=== PATIENT | female | born 1970 | race Caucasian/White ===

== ENCOUNTER 2017-02-09 23:10 | Emergency (ER) | payer OTHER ==
[2017-02-09] MEDS ORDERED: NS 1,000 ML IV ONE ×2 (23:20→23:56)
[2017-02-09 23:25] VITALS: RESP 16
[2017-02-09 23:37] LABS: % IMMATURE GRANULYOCYTES 0.2 % (0.0-1.1); ABSOLUTE IMMATURE GRANULOCYTES 0.01 10^3/uL (0.00-0.10); ADD DIFF? NO; ADD MORPH? NO; ADD SCAN? NO; ATYPICAL LYMPHOCYTE FLAG 20 (0-99); FRAGMENT RBC FLAG 0 (0-99); HEMATOCRIT 42.3 % (38.0-47.0); HEMOGLOBIN 14.6 g/dL (12.6-16.3); LEFT SHIFT FLG 0 (0-99); LIPEMIA HEMOLYSIS FLAG 90 (0-99); MEAN CELL HEMOGLOBIN CONCENTR. 34.5 g/dL (32.4-36.7); MEAN CELL VOLUME 92.8 fL (81.5-99.8); MEAN PLATELET VOLUME 10.6 fL (8.7-11.7); PLATELET CLUMPS FLAG 30 (0-99); PLATELET COUNT 174 10^3/uL (150-400); RED BLOOD CELL COUNT 4.56 10^6/uL (4.18-5.33); RED CELL DISTRIBUTION WIDTH 12.1 % (11.5-15.2)
[2017-02-09 23:47] LABS: ANION GAP 16 mEq/L (8-16); CALCIUM 9.4 mg/dL (8.5-10.4); CARBON DIOXIDE 22 mEq/l (22-31); CHLORIDE 104 mEq/L (97-110); CREATININE 0.8 mg/dL (0.6-1.0); GLOMERULAR FILTRATION RATE > 60; GLUCOSE 114 mg/dL (70-100); POTASSIUM 3.9 mEq/L (3.5-5.2); SODIUM 142 mEq/L (134-144)
[2017-02-09] MEDS ORDERED: ONDANSETRON 4 MG/2 ML VIAL IVP ONE (23:48)
[2017-02-09] MEDS ORDERED: KETOROLAC 30 MG/1 ML SDV IVP ONE (23:48)
--- NOTE | 2017-02-09 23:55 | EDPHY ---
H & P Stated Complaint: nausea/diarrhea since last night with fever. Time Seen by Provider: 02/09/17 23:13 HPI/ROS: This patient complains of fevers, coryza, dry cough nausea and diarrhea. She explains that 5 days prior to arrival she noticed coryza and a mild sore throat. Her symptoms increased with addition of fevers over the past 48 hr up to 102 at home associated with chills and myalgias. She reports 2 days of a dry cough in addition. She developed the nausea with a dry heave over the past 24 hr and at tonight at 7:00 p.m. developed associated loose watery diarrhea- few episodes prior to arrival. Finally, the patient complains of a bifrontal headache peak intensity 8/10 diminish to 4/10 intensity after receiving IM Toradol at home at 1:30 a.m. by a home health care service called [facility]. She also received Zofran and took a 4 mg dose at 8:00 p.m. with partial relief of nausea which is still moderate. The [facility] service was able to do a nasal swab test for influenza a and B which was negative. ROS: Fevers and chills as per HPI. Fever earlier today was 101.9. Last Tylenol dose was at 4:00 p.m. Toradol dose at 1:30 p.m. no other antiemetics since then. Patient also her complains of fatigue. No other constitutional symptoms HEENT: Coryza. Mild sore throat that she attributes to coughing. No ear pain. Neuro: Frontal headache is similar to prior headaches comma achy in nature currently 4/10 with partial relief from [id number] analgesics. She has no numbness tingling or focal weakness. Psychiatric: Patient is currently grieving the of her father who this morning. He had an HI 2 weeks ago was on a ventilator. She flew back from [place] 5 days prior to this visit after seeing her father there. The patient also complains of insomnia with frequent awakening over the past 4 5 nights averaging 4-6 hours of broken sleep. Pulmonary: No shortness of breath or wheeze. No pleuritic pain. No hemoptysis. Cardiovascular: Chest pain only when she coughs it she feels is musculoskeletal in her chest wall. She has no calf swelling or pain. No lightheadedness or heart palpitations. GI: She reports minimal cramping just prior to diarrhea episodes but otherwise has no abdominal pain. She does note increased bowel sounds over the past 24 hr. She has had dry heaving but no actual vomiting. She has ongoing moderate nausea currently. : No dysuria frequency urgency or flank pain. Her menstrual period just started today. This is normal timing for her. Integumentary: No skin rash Endocrine: No complaints Complete review of symptoms is otherwise negative. Source: Patient, Family (Her , "Anam" who drove her here by private vehicle also provides history.) Exam Limitations: No limitations - Personal History LMP (Females 10-55): Now Current Tetanus Diphtheria and Acellular Pertussis (TDAP): Yes - Medical/Surgical History PMH: Hx Asthma: No Hx Chronic Respiratory Disease: No Hx Diabetes: No Hx Cardiac Disease: No Hx Renal Disease: No Hx Cirrhosis: No Hx Alcoholism: No Hx HIV/AIDS: No Hx Splenectomy or Spleen Trauma: No Other PMH: c-sections - Family History Significant Family History: No pertinent family hx - Social History Smoking Status: Never smoked Alcohol Use: Rarely Drug Use: None Additional Social History: with a 4 and 6-year-old son and daughter Father today Her son was ill over the past week with similar symptoms-coryza fever and otitis media - Physical Exam Exam: General Appearance: Alert, no distress. Eyes: Pupils equal and round no pallor or injection. ENT, Mouth: Mucous membranes dry. Ears: Clear bilaterally nose: Clear discharge. No sinus tenderness to percussion. She does have mild frontal head tenderness to palpation the partially reproduces her symptoms. Oropharynx: No erythema exudates or dysphonia. Neck: Supple with no meningismus. Respiratory: There are no retractions, lungs are clear to auscultation. No rales rhonchi or wheeze. Cardiovascular: Regular rate and rhythm. No murmur gallop or rub. No leg swelling or tenderness Gastrointestinal: Hyperactive bowel sounds, soft, nontender Back: No CVA tenderness Neurological: GCS of 15 Skin: Warm and dry, no rashes. Extremities are symmetrical, full range of motion. Psychiatric: Patient is tearful when talking about her father's passing but maintains logical thought content and still able to smile and laugh during part of the interview. DIFFERENTIAL DIAGNOSIS: After history and physical exam differential diagnosis was considered for viral URI with cough and GI symptoms, urinary tract infection , parainfluenza, norovirus, grief response, insomnia Constitutional: Initial Vital Signs Temperature (C) 37.4 C 02/09/17 23:23 Heart Rate 98 02/09/17 23:23 Respiratory Rate 16 02/09/17 23:23 Blood Pressure 118/78 02/09/17 23:23 O2 Sat (%) 98 02/09/17 23:23 O2 Delivery Mode Room Air Allergies/Adverse Reactions: Sulfa (Sulfonamide Antibiotics) Allergy (Intermediate, Verified 02/10/17 09:18) Hives cefazolin sodium [From Ancef] Allergy (Mild, Verified 02/10/17 09:18) Hives metoclopramide HCl [From Reglan] Allergy (Mild, Verified 02/10/17 09:18) Other-Enter Comments Home Medications: Medication Instructions Recorded Acetaminophen [Tylenol 325mg (*)] 325 mg PO Q6 PRN 02/10/17 Albuterol Hfa Anes Only [Proair 2 puffs IH QID #1 mdi 02/10/17 Hfa Icu (*)] Benzonatate [Tessalon Pearles] 100 - 200 mg PO TID PRN #20 cap 02/10/17 Herbals/Supplements -Info Only 1 ea PO DAILY 02/10/17 Multivitamins [Multivitamin (*)] 1 each PO DAILY 02/10/17 [place]-3 Fatty Acids [Fish Oil 1000 1,000 mg PO DAILY 02/10/17 mg (*)] Promethazine HCl [Phenergan] 25 mg RC Q6 PRN #4 supp.rect 02/10/17 Zaleplon [Sonata] 10 mg PO HS PRN #10 capsule 02/10/17 Oseltamivir Phosphate [Tamiflu 75 75 mg PO BIDMEAL #8 cap 02/11/17 mg (*)] Medical Decision Making ED Course/Re-evaluation: IV normal saline bolus x2 L Zofran 4 mg IV, Toradol 30 mg IV CBC and basic metabolic panel are normal. HCG is negative. Urinalysis is also normal At 12:40 p.m. the patient reported worsening nausea despite the prior Zofran dose. This is treated with Benadryl and Ativan with improvement. I counseled the patient and her regarding viral illness, grief response and insomnia. Discussion: Findings are consistent with viral URI with cough and associated GI symptoms. Labs are normal tonight. She is having a grief response to her father's in addition. This is triggering some insomnia. Her ouptatient tx. plan will include Phenergan suppositories p.r.n., sonata if needed for insomnia on subsequent nights, [id number] Imodium if needed for diarrhea and Tessalon Perles for her cough. She is given customary warnings to return emergency department for any significant worsening of her symptoms despite the treatment plan. - Data Points Laboratory Results: Laboratory Results 02/09/17 23:27 02/09/17 23:27 Medications Given: Discontinued Medications Acetaminophen (Tylenol) 1,000 mg PO EDNOW ONE Stop: 02/10/17 00:01 Last Admin: 02/10/17 00:44 Dose: Not Given Diphenhydramine HCl (Benadryl Injection) 25 mg IVP EDNOW ONE Stop: 02/10/17 00:45 Last Admin: 02/10/17 00:52 Dose: 25 mg Sodium Chloride (Ns) 1,000 mls @ 0 mls/hr IV EDNOW ONE; Wide Open PRN Reason: Protocol Stop: 02/09/17 23:21 Last Admin: 02/09/17 23:30 Dose: 1,000 mls Sodium Chloride (Ns) 1,000 mls @ 0 mls/hr IV ONCE ONE; Wide Open PRN Reason: Protocol Stop: 02/09/17 23:57 Last Admin: 02/09/17 23:59 Dose: 1,000 mls Ketorolac Tromethamine (Toradol) 30 mg IVP EDNOW ONE Stop: 02/09/17 23:49 Last Admin: 02/09/17 23:53 Dose: 30 mg Lorazepam (Ativan Injection) 0.5 mg IVP EDNOW ONE Stop: 02/10/17 00:45 Last Admin: 02/10/17 00:51 Dose: 0.5 mg Ondansetron HCl (Zofran) 4 mg IVP EDNOW ONE Stop: 02/09/17 23:49 Last Admin: 02/09/17 23:52 Dose: 4 mg Promethazine HCl (Phenergan 25 Mg Prepack #4) 1 btl RAMON JOSEPH ONE Stop: 02/10/17 00:46 Last Admin: 02/10/17 01:03 Dose: 1 btl Departure - Departure Disposition: Home, Routine, Self-Care Clinical Impression: Viral URI with cough, Fever, Nausea, Diarrhea, Grief reaction, Insomnia Condition: Good Instructions: Promethazine (Into the rectum), Grief and Loss (ED), Insomnia (ED ) Additional Instructions: Diagnoses: 1. Viral URI with cough 2. Nausea and diarrhea 3. Dehydration 4. Grief reaction 5. Insomnia Your blood count, basic metabolic panel and urinalysis are normal tonight. Plan: Humidifier Tessalon Perles cough suppressant if needed Tylenol and ibuprofen for fevers Zofran sublingual and Phenergan suppositories as needed for an nausea or vomiting Imodium (over-the- counter) if needed for diarrhea. Sonata if needed as a sleep aid for insomnia. Drink plenty of fluids and have a bland diet until her symptoms improve. Typically the gastrointestinal symptoms will improve over the course of 24-48 hrs. Return for any significant worsening despite the treatment plan. Referrals: Patient,NotPresent [Unknown] - As per Instructions Prescriptions: Benzonatate [Tessalon Pearles] 100 - 200 mg PO TID PRN #20 cap PRN Reason: cough Promethazine HCl [Phenergan] 25 mg RC Q6 PRN #4 supp.rect PRN Reason: vomiting Zaleplon [Sonata] 10 mg PO HS PRN #10 capsule PRN Reason: insomnia
[2017-02-10] MEDS ORDERED: ACETAMINOPHEN 500 MG TAB PO ONE
[2017-02-10 00:16] VITALS: TEMP 99.7
[2017-02-10 00:27] LABS: COLOR YELLOW; LEUKOCYTE ESTERASE,URINE NEGATIVE (NEGATIVE); NITRITE,URINE NEGATIVE (NEGATIVE)
[2017-02-10] MEDS ORDERED: LORazepam 2 MG/ML INJ IVP ONE (00:44)
[2017-02-10] MEDS ORDERED: PROMETHAZINE 25 MG PREPACK #4 BTL TAKEHOME ONE (00:45)
[2017-02-10 01:30] VITALS: BP 102/64; PULSE 82; O2SAT 93
== END 2017-02-10 01:30 | disposition home or self-care (01) ==
LOC: CED 23:10
DX: J06.9 Acute upper respiratory infection, unspecified (principal); R19.7 Diarrhea, unspecified; R11.0 Nausea; G47.00 Insomnia, unspecified; F43.20 Adjustment disorder, unspecified; E86.9 Volume depletion, unspecified
CPT/HCPCS: 80048-PO; 81003-PO; 84703-PO; 85025-PO; 96374; J1200; J1885; J2060; J2405

== ENCOUNTER 2017-02-10 09:07 | Observation (INO) | payer OTHER ==
[2017-02-10] MEDS ORDERED: ACETAMINOPHEN 500 MG TAB PO ONE (09:24)
[2017-02-10] MEDS ORDERED: ONDANSETRON DISINTEGRATING 4 MG TAB PO ONE (09:24)
[2017-02-10] MEDS ORDERED: LORazepam 2 MG/ML INJ IVP ONE (09:53)
[2017-02-10] MEDS ORDERED: ACETAMINOPHEN 650 MG SUPP PR ONE (09:53)
--- NOTE | 2017-02-10 10:08 | EDPHY ---
H & P Stated Complaint: seen last night for same-cough, [place], nausea; feels worse; fever 103.8F Time Seen by Provider: 02/10/17 09:28 HPI/ROS: CHIEF COMPLAINT: Fever, nausea, feels horrible HISTORY OF PRESENT ILLNESS: This is a 47-year-old female who presents to the emergency department less than 12 hr after her prior to discharge. This is her 3rd contact with medical providers in the last 24 hr. Patient reports becoming ill about 5 days ago with mild sore throat, and URI symptoms while she was in [place]. She then traveled to [place]. She then developed significant nausea, dry heaving, and ongoing diarrhea. She reports that her son was also ill with diarrhea. She then developed a fever 2 days ago associated with a cough. She was seen by home visiting service called [facility] 24 hr ago. They provided her with a L of normal saline, Toradol for headache as well as for fever, and Zofran for nausea. Rapid influenza was performed and was negative. Patient presents to the emergency department 10 hr ago with ongoing fever, ongoing nausea, dry heaves, and diarrhea. She states she had been unable take antipyretics secondary to significant nausea was also concerned regarding her ongoing diarrhea. During her emergency department evaluation, she received 2 L of normal saline, had a normal white count, normal chemistries, received Zofran and Toradol and was feeling better when she was discharged. She was discharged with rectal suppositories. She re-presented now with a temperature of a 103degrees. She has not taken any antipyretic stating that she cannot tolerate the thought of taking Tylenol secondary to severe nausea. She has not taken her rectal Phenergan secondary to hemorrhoids. Diarrhea has slowed down. She has not had any vomiting. She is also reporting a cough. Moderate headache. No neck pain. No sore throat at the current time. Denies dysuria, vaginal discharge, rash, she does have some intermittent sharp, brief, right sided abdominal discomfort which is not persistent. Cough is not productive of sputum. Denies chest pain or shortness of breath. Patient does report she feels "horrible" and hates feeling ill. She is anxious regarding her ongoing illness. REVIEW OF SYSTEMS: Aside from elements discussed in the HPI, a comprehensive 10-point review of systems was reviewed and is negative. PAST MEDICAL HISTORY: Denies. SOCIAL HISTORY: Here with her , and son. They have traveled to [place] to see her ill father, who on Tuesday. VITAL SIGNS: see nurse's notes. Temperature 39.5degrees. Heart rate 96. GENERAL: Well-developed, well-nourished, anxious, febrile. HEENT: Atraumatic Eyes: PERRL, EOMI, no conjunctival injection. Ears: TM clear bilaterally. Nose: No discharge. Mouth: moist mucous membranes. Pharynx: no erythema, no exudates, no swelling, no abscess. Uvula is midline. NECK: Supple, no adenopathy, no meningismus, no tenderness. Negative Kernig's and Brudzinski's. LUNGS: Clear to auscultation bilaterally, no wheezes, rhonchi or rales. Frequent dry cough. CARDIAC: Regular rate and rhythm, no rubs, murmurs or gallops. ABDOMEN: Soft, nontender, nondistended. Normal bowel sounds. No focal tenderness in the right lower quadrant. BACK: No CVA tenderness. EXTREMITIES: Normal, no edema, FROM. NEURO: Alert and oriented, grossly nonfocal. SKIN: Warm and dry, no rash. PSYCHIATRIC: Normal mentation, no agitation. - Personal History LMP (Females 10-55): Now Current Tetanus/Diphtheria Vaccine: Yes - Medical/Surgical History Hx Asthma: No Hx Chronic Respiratory Disease: No Hx Diabetes: No Hx Cardiac Disease: No Hx Renal Disease: No Hx Cirrhosis: No Hx Alcoholism: No Hx HIV/AIDS: No Hx Splenectomy or Spleen Trauma: No Other PMH: c-sections - Social History Smoking Status: Never smoked Constitutional: Initial Vital Signs Temperature (C) 39.5 C H 02/10/17 09:14 Heart Rate 96 02/10/17 09:14 Respiratory Rate 20 02/10/17 09:14 Blood Pressure 109/69 02/10/17 09:14 O2 Sat (%) 98 02/10/17 09:14 O2 Delivery Mode Room Air Allergies/Adverse Reactions: Sulfa (Sulfonamide Antibiotics) Allergy (Intermediate, Verified 02/10/17 09:18) Hives cefazolin sodium [From Ancef] Allergy (Mild, Verified 02/10/17 09:18) Hives metoclopramide HCl [From Reglan] Allergy (Mild, Verified 02/10/17 09:18) Other-Enter Comments Home Medications: Medication Instructions Recorded Multivitamin [One Daily] 02/09/17 Albuterol Hfa Anes Only [Proair 2 puffs IH QID #1 mdi 02/10/17 Hfa Icu (*)] Benzonatate [Tessalon Pearles (RX)] 100 - 200 mg PO TID PRN #20 cap 02/10/17 Hydrocodone/APAP 5/325 [[place] 1 tab PO Q6H PRN #10 tab 02/10/17 5/325 (*)] LORazepam [Ativan] 1 mg PO Q12 PRN #6 tablet 02/10/17 Promethazine HCl [Phenergan 12.5mg 12.5 mg TN Q8 PRN #8 suppr 02/10/17 supp (*)] Promethazine HCl [Phenergan] 25 mg RC Q6 PRN #4 supp.rect 02/10/17 Zaleplon [Sonata] 10 mg PO HS PRN #10 capsule 02/10/17 Medical Decision Making - Diagnostics EKG Interpretation: 12-LEAD EKG: Please see the full report in [facility]. My interpretation: Sinus rhythm, no acute ischemic changes Imaging Results: Imaging Impressions Chest X-Ray 02/10/17 09:52 Impression: Minimal bibasilar atelectasis. No lobar pneumonia or effusion. Imaging: I viewed and interpreted images myself ED Course/Re-evaluation: 47-year-old female here with her 3rd contact with medical providers in the last 24 hr. She describes ongoing nausea with no relief from the Zofran and inability to use the rectal Phenergan. She reports ongoing fever and has not taken antipyretics secondary to nausea. She does report improved diarrhea and has had not had vomiting. Cough is not productive. No chest pain or shortness of breath. Patient had labs drawn including lactic acid she meets criteria for sepsis. Influenza swab was sent, as the influenza screening performed by [facility] was the rapid test. Patient received Ativan for anxiety as well as for nausea. She received rectal Tylenol and Toradol IV. The patient's evaluation emergency department demonstrates white count 2.7, normal creatinine, normal platelets. Patient does have an INR which is trending upward at 1.23. Patient's symptoms improved with the treatment. Plans were initially made for discharge, however, just prior to discharge the patient got up to go to the restroom and was noted to be orthostatic with a blood pressure of 70. When laying, patient's systolic blood pressure remained in the 80s. Severe sepsis was declared at 1145. Patient received a 2nd L of fluid, D5 normal saline. Following this patient's vital signs were rechecked. The blood pressure is 92/60 following her fluid bolus. She does become orthostatic when she stands, with a blood pressure of 72 systolic. Heart rate is 105. Plans were made to admit the patient to the hospital. At the current point, I will not initiate antibiotics and she is influenza A positive, and has no pneumonia demonstrated on her chest x-ray. Patient's course was discussed with the hospitalist service. Patient will be transferred to [facility] to be admitted to Dr. Gio Royal service. Severe Sepsis/Septic Shock Care Note The patient presents to the ED with influenza identified as an acute infection. The patient did have evidence of end-organ dysfunction and met criteria for severe sepsis. This condition was identified by myself at 1145. The patients vital signs are 70/50, 103, 18, 95%, 37.5. The patient has a venous lactic acid performed within 3 hours of the identification of severe sepsis which was found to be 0.9. The patient has blood cultures drawn and did not receive antibiotics as she is influenza a positive. She did receive a dose of Tamiflu. The initial lactate was not elevated but was recheck within 6 hr of the identification of severe sepsis and found to be 0.6. At time of transfer patient's blood pressure is 83/54 with a map of 64. However , patient got up and walked to the bathroom without difficulty and when she returned her blood pressure is 101 systolic. Patient's course thus far was discussed with Dr. Gio Royal. We will hold on placing central line. I do recognize the patient's map has been trending between 60 and 65, however, in light of patient is very alert mental status, improving lactic acid, appropriate urine output, I do not believe the patient at this point needs a central line. 2nd peripheral line was placed. Differential Diagnosis: Differential diagnoses for the patient's symptom complex was considered including but not limited to viral syndrome, influenza, post influenza pneumonia , sepsis, severe sepsis, urinary tract infection, bronchospasm, septic shock. Consult/Admit Bed Type: Dr. Gio Royal, step-down Other Provider: I spent a total of 30 minutes of critical care time in obtaining history, performing a physical exam, bedside monitoring of interventions, collecting and interpreting tests and discussion with consultants but not including time spent performing procedures. - Data Points Laboratory Results: Laboratory Results 02/10/17 10:10 02/10/17 10:10 02/10/17 02/10/17 02/10/17 10:10 10:10 10:10 WBC RBC Hgb Hct MCV MCH MCHC RDW Plt Count MPV Neut % (Auto) Lymph % (Auto) Storey % (Auto) Eos % (Auto) Baso % (Auto) Nucleat RBC Rel Count Absolute Neuts (auto) Absolute Lymphs (auto) Absolute Monos (auto) Absolute Eos (auto) Absolute Basos (auto) Absolute Nucleated RBC Immature Gran % Immature Gran # PT 15.3 SEC H SEC (12.0-15.0) INR 1.23 H (0.83-1.16) APTT 38.3 SEC H SEC (23.0-38.0) VBG Lactic Acid 0.9 mmol/L mmol/L (0.7-2.1) Sodium 143 mEq/L mEq/L (134-144) Potassium 3.7 mEq/L mEq/L (3.5-5.2) Chloride 106 mEq/L mEq/L (97-110) Carbon Dioxide 21 mEq/l L mEq/l (22-31) Anion Gap 16 mEq/L mEq/L (8-16) BUN 3 mg/dL L mg/dL (7-23) Creatinine 0.8 mg/dL mg/dL (0.6-1.0) Estimated GFR > 60 Glucose 90 mg/dL mg/dL (70-100) Calcium 8.8 mg/dL mg/dL (8.5-10.4) Total Bilirubin 0.5 mg/dL mg/dL (0.1-1.4) Influenza A,B Rapid 02/10/17 02/10/17 10:10 10:00 WBC 2.73 10^3/uL L 10^3/uL (3.80-9.50) RBC 4.21 10^6/uL 10^6/uL (4.18-5.33) Hgb 13.6 g/dL g/dL (12.6-16.3) Hct 38.9 % % (38.0-47.0) MCV 92.4 fL fL (81.5-99.8) MCH 32.3 pg pg (27.9-34.1) MCHC 35.0 g/dL g/dL (32.4-36.7) RDW 12.2 % % (11.5-15.2) Plt Count 151 10^3/uL 10^3/uL (150-400) MPV 10.4 fL fL (8.7-11.7) Neut % (Auto) 66.3 % % (39.3-74.2) Lymph % (Auto) 18.3 % % (15.0-45.0) Storey % (Auto) 13.6 % H % (4.5-13.0) Eos % (Auto) 1.1 % % (0.6-7.6) Baso % (Auto) 0.7 % % (0.3-1.7) Nucleat RBC Rel Count 0.0 % % (0.0-0.2) Absolute Neuts (auto) 1.81 10^3/uL 10^3/uL (1.70-6.50) Absolute Lymphs (auto) 0.50 10^3/uL L 10^3/uL (1.00-3.00) Absolute Monos (auto) 0.37 10^3/uL 10^3/uL (0.30-0.80) Absolute Eos (auto) 0.03 10^3/uL 10^3/uL (0.03-0.40) Absolute Basos (auto) 0.02 10^3/uL 10^3/uL (0.02-0.10) Absolute Nucleated RBC 0.00 10^3/uL 10^3/uL (0-0.01) Immature Gran % 0.0 % % (0.0-1.1) Immature Gran # 0.00 10^3/uL 10^3/uL (0.00-0.10) PT INR APTT VBG Lactic Acid Sodium Potassium Chloride Carbon Dioxide Anion Gap BUN Creatinine Estimated GFR Glucose Calcium Total Bilirubin Influenza A,B Rapid POSITIVE FOR FLU A H (NEGATIVE) Medications Given: Levofloxacin/Dextrose (Levaquin 750 Mg (Premix)) 150 mls @ 100 mls/hr IV EDNOW ONE PRN Reason: Protocol Stop: 02/10/17 15:37 Last Admin: 02/10/17 14:20 Dose: 150 mls Discontinued Medications Acetaminophen (Tylenol) 1,000 mg PO EDNOW ONE Stop: 02/10/17 09:25 Last Admin: 02/10/17 09:28 Dose: 1,000 mg Acetaminophen (Tylenol Rectal) 650 mg TN EDNOW ONE Stop: 02/10/17 09:54 Last Admin: 02/10/17 10:09 Dose: Not Given Hydrocodone Bitart/Acetaminophen ([place] 5/325) 1 tab PO EDNOW ONE Stop: 02/10/17 11:28 Last Admin: 02/10/17 11:43 Dose: Not Given Albuterol (Proventil Neb) 3 ml IH EDNOW ONE Stop: 02/10/17 13:32 Last Admin: 02/10/17 13:47 Dose: 3 ml Sodium Chloride (Ns) 1,000 mls @ 0 mls/hr IV EDNOW ONE; Wide Open PRN Reason: Protocol Stop: 02/10/17 10:16 Last Admin: 02/10/17 10:15 Dose: 1,000 mls Dextrose/Sodium Chloride (D5w Ns) 1,000 mls @ 0 mls/hr IV EDNOW ONE; Wide Open PRN Reason: Protocol Stop: 02/10/17 11:45 Last Admin: 02/10/17 11:48 Dose: 1,000 mls Sodium Chloride (Ns) 1,000 mls @ 0 mls/hr IV ONCE ONE; Wide Open PRN Reason: Protocol Stop: 02/10/17 13:33 Last Admin: 02/10/17 13:51 Dose: 1,000 mls Ketorolac Tromethamine (Toradol) 15 mg IVP EDNOW ONE Stop: 02/10/17 10:12 Last Admin: 02/10/17 10:21 Dose: 15 mg Lorazepam (Ativan Injection) 1 mg IVP EDNOW ONE Stop: 02/10/17 09:54 Last Admin: 02/10/17 10:08 Dose: 1 mg Ondansetron HCl (Zofran Odt) 4 mg PO EDNOW ONE Stop: 02/10/17 09:25 Last Admin: 02/10/17 09:28 Dose: 4 mg Oseltamivir Phosphate (Tamiflu) 75 mg PO EDNOW ONE Stop: 02/10/17 13:32 Last Admin: 02/10/17 13:47 Dose: 75 mg Departure - Departure Disposition: Home, Routine, Self-Care Clinical Impression: Influenza A, Nausea, Severe sepsis Condition: Good
[2017-02-10] MEDS ORDERED: KETOROLAC 15 MG/1 ML SDV IVP ONE (10:11)
[2017-02-10 10:15] LABS: ADD DIFF? NO; ADD MORPH? NO; ADD SCAN? NO; ATYPICAL LYMPHOCYTE FLAG 10 (0-99); FRAGMENT RBC FLAG 0 (0-99); HEMATOCRIT 38.9 % (38.0-47.0); HEMOGLOBIN 13.6 g/dL (12.6-16.3); LEFT SHIFT FLG 0 (0-99); LIPEMIA HEMOLYSIS FLAG 90 (0-99); MEAN CELL HEMOGLOBIN 32.3 pg (27.9-34.1); MEAN CELL VOLUME 92.4 fL (81.5-99.8); MEAN PLATELET VOLUME 10.4 fL (8.7-11.7); PLATELET CLUMPS FLAG 0 (0-99); PLATELET COUNT 151 10^3/uL (150-400); RED BLOOD CELL COUNT 4.21 10^6/uL (4.18-5.33); RED CELL DISTRIBUTION WIDTH 12.2 % (11.5-15.2)
[2017-02-10] MEDS ORDERED: NS 1,000 ML IV ONE ×2 (10:15→13:32)
[2017-02-10 10:27] LABS: INR 1.23 (0.83-1.16); PROTIME(PATIENT) 15.3 SEC (12.0-15.0)
[2017-02-10 10:28] LABS: ANION GAP 16 mEq/L (8-16); APTT 38.3 SEC (23.0-38.0); BILIRUBIN,TOTAL 0.5 mg/dL (0.1-1.4); CALCIUM 8.8 mg/dL (8.5-10.4); CARBON DIOXIDE 21 mEq/l (22-31); CHLORIDE 106 mEq/L (97-110); CREATININE 0.8 mg/dL (0.6-1.0); GLOMERULAR FILTRATION RATE > 60; GLUCOSE 90 mg/dL (70-100); POTASSIUM 3.7 mEq/L (3.5-5.2); SODIUM 143 mEq/L (134-144)
[2017-02-10] MEDS ORDERED: HYDROCODONE/APAP 5/325 TAB PO ONE (11:27)
[2017-02-10] MEDS ORDERED: D5W NS 1,000 ML IV ONE (11:44)
[2017-02-10] MEDS ORDERED: ALBUTEROL 3 ML DEYVIAL IH ONE (13:31)
[2017-02-10] MEDS ORDERED: OSELTAMIVIR PHOSPHATE 75 MG CAP PO ONE (13:31)
[2017-02-10 14:12] LABS: TROPONIN I < 0.012 ng/mL (0.000-0.034)
--- NOTE | 2017-02-10 14:21 | CPEKG ---
Heart Rate: 88 RR Interval: 682 P-R Interval: 144 QRSD Interval: 84 QT Interval: 348 QTC Interval: 421 P [place]: 61 QRS [place]: 68 T Wave [place]: 37 EKG Severity - NORMAL ECG - EKG Impression: SINUS RHYTHM Electronically Signed By: Camron Adams 13-Feb-2017 08:55:46
[2017-02-10 14:49] LABS: COLOR YELLOW; LEUKOCYTE ESTERASE,URINE NEGATIVE (NEGATIVE); NITRITE,URINE NEGATIVE (NEGATIVE)
[2017-02-10 15:06] LABS: WBC,URINE NONE SEEN /hpf (0-3)
[2017-02-10 15:07] LABS: BACTERIA TRACE /hpf (NONE SEEN); YEAST OCCASIONAL /hpf (NONE SEEN)
[2017-02-10] MEDS ORDERED: ONDANSETRON DISINTEGRATING 4 MG TAB PO PRN (16:06)
[2017-02-10] MEDS ORDERED: PROMETHAZINE HCL 25 MG/ML INJ IVP PRN (16:06)
[2017-02-10] MEDS ORDERED: ONDANSETRON 4 MG/2 ML VIAL IVP PRN (16:06)
[2017-02-10] MEDS ORDERED: D5W 1/2 NS 1,000 ML IV SCH (16:15)
[2017-02-10] MEDS ORDERED: LORazepam 1 MG TAB PO PRN (16:24)
[2017-02-10] MEDS: ACETAMINOPHEN 500 MG TAB PO SCH ×2 (16:37→21:53)
--- NOTE | 2017-02-10 16:40 | GHP ---
[f rep st] HISTORY AND PHYSICAL DATE OF ADMISSION: 02/10/2017 The patient is a pleasant 47-year-old female with minimal past medical history, who presents with sev eral days of myalgias and weakness, diarrhea, and cough, as well as nausea. She was seen yesterday a t urgent care with similar complaints and discharged. She returns today feeling worse. She was mode rately tachycardic with heart rates in the low 100s and soft blood pressures. She was also febrile. She did not get a flu shot this year. She has not had urinary symptoms or abdominal pain or rash on her skin. She describes her diarrhea as non-black, nonbloody. She has not vomited. She took some Zofran at home. She has not been short of breath. In the emergency department, there was concern for severe sepsis. However, her baseline blood pressu re is about 110, and she has a normal serum lactate, making this not sepsis. She did receive a dose of IV antibiotics. REVIEW OF SYSTEMS: Complete 10-point review of systems conducted and negative, except as noted in th e HPI. PAST MEDICAL HISTORY: None. ALLERGIES: Sulfa, cefazolin, and Reglan, to which she had a tardive dyskinesia. SOCIAL HISTORY: She lives in [place]. present at the bedside. She has a 4 and a 6-year-o ld. She does not smoke cigarettes. She drinks occasional alcohol. FAMILY HISTORY: Her father recently . She wants to attend the this upcoming Tue ay via airplane. PHYSICAL EXAMINATION: VITAL SIGNS: Temp 37.5, blood pressure 70/50 on presentation with a pulse of 103, blood pressure now 101/66, pulse in the 80s, breathing 18 times a minute, 99% on room air. GENE RAL: No acute distress. HEENT: Sclerae anicteric. Oropharynx clear. Mucous membranes are moist. NECK: Supple, without lymphadenopathy or JVD. LUNGS: Clear to auscultation bilaterally. HEART: S1, S2. Not tachycardic. ABDOMEN: Soft, nontender, nondistended. LOWER EXTREMITIES: No edema. C espinosa nontender. SKIN: Without rash. NEUROLOGIC: Exam is nonfocal. LABS: White count 2.7, hematocrit 39, platelets 151,000. INR is 1.2. Venous lactate is 0.9. It is now low at 0.6. Sodium 143, potassium 3.7, chloride 106, bicarb 21, BUN 3, creatinine 0.8, glucose 90. Troponin less than 0.012. Beta hCG was negative yesterday. UA was negative. She is influenza A positive. Chest x-ray, interpreted by me, shows no acute cardiopulmonary disease. EKG interpreted by me shows sinus at 88 with normal axis and intervals. There is no ST or T-wave changes. I have d iscussed the case with Dr. Charity Dudley. ASSESSMENT/PLAN: A 47-year-old female who presents with influenza and hypotension. 1. Hypotension: Her baseline blood pressure is relatively low. I think she is a little bit clinica lly dry. I do not believe that this is sepsis. It sounds like the ER debated whether or not to empl oy central line or pressors, but the patient is mentating, completely alert. Will give her half-norm al saline and follow. 2. Influenza: Will start Tamiflu. 3. Sepsis: This patient does not have sepsis. 4. Nausea: Phenergan and Zofran. 5. Prophylaxis: Pharmacologic prophylaxis indicated if in the hospital longer than 24 hours. For n ow, will just do SCDs. 6. Disposition: Observation status. /[id number]/MODL
[2017-02-10] MEDS: OSELTAMIVIR PHOSPHATE 75 MG CAP PO SCH (17:22)
[2017-02-10] MEDS ORDERED: BENZONATATE 100 MG CAP PO PRN (19:17)
[2017-02-10] MEDS ORDERED: PROMETHAZINE HCL 25 MG SUPPR PR PRN (19:17)
[2017-02-10] MEDS ORDERED: TEMAZEPAM 15 MG CAP PO PRN (19:20)
[2017-02-11] MEDS ORDERED: CEPACOL LOZENGE PO ONE (02:24)
[2017-02-11] MEDS: ACETAMINOPHEN 500 MG TAB PO SCH (05:51)
[2017-02-11 06:27] VITALS: O2SAT 97
[2017-02-11] MEDS: OSELTAMIVIR PHOSPHATE 75 MG CAP PO SCH (08:54)
[2017-02-11] MEDS ORDERED: MULTIVITAMINS 1 EACH TAB PO SCH (09:00)
[2017-02-11] MEDS ORDERED: Herbals/Supplements -Info Only PO SCH (09:00)
[2017-02-11] MEDS ORDERED: OMEGA-3 FATTY ACIDS 1,000 MG CAP PO SCH (09:00)
[2017-02-11 10:50] VITALS: BP 96/59; PULSE 76; RESP 18; TEMP 98.7
--- NOTE | 2017-02-11 10:52 | ASDISCHSUM ---
Discharge Information Plan Status:Home with No Needs Medically Cleared to Leave: Discharge Date:02/11/2017 10:00 AM CM D/C Disposition:Home, Routine, Self-Care ADT D/C Disposition:Home, Routine, Self-Care Projected Discharge Date:02/11/2017 10:00 AM Transportation at D/C:Family Discharge Delay Reason: Follow-Up Date:02/11/2017 10:00 AM Discharge Slot: Final Diagnosis: Placement Information Patient Contact Information Contact Name:VALENTIN Relationship: Address:[address] Work Phone: City:[facility] Phone: [facility]/Zip Code:[place] [address] Email: Financial Information Financial Class:HMO and PPO Plans Primary Plan Desc:[employer] Primary Plan Number:[id number] Secondary Plan Desc: Secondary Plan Number: Assessment Information Intervention Information
--- NOTE | 2017-02-11 16:10 | GDS ---
[f rep st] DISCHARGE SUMMARY DISCHARGE DIAGNOSIS: Influenza A. HISTORY: For details, please see history and physical dated February 10, 2017. In brief, the patien marium is a 47-year-old female with no significant past medical history, who presents to the Emergency Dep artment with upper respiratory flu-like symptoms, and was found to be positive for influenza A. She was admitted to the hospital for observation. HOSPITAL COURSE: The patient was admitted to the step-down unit due to some hypotension. It seems s he likely runs in the 90s/60s at baseline, and did not require any interventions such as a central li ne or pressors. She was started on Tamiflu for her influenza. She did not require any oxygen and is satting 96% to 98% throughout her hospitalization. She remains normotensive this morning and is sta ble for discharge home. DISPOSITION: The patient is discharged home in stable condition. FOLLOWUP: The patient is to follow up with her PCP as needed. DISCHARGE MEDICATIONS: Please see [employer] for complete updated outpatient medication list New medications on discharge include: Tamiflu 75 mg p.o. twice daily #8 no refills, and albuterol 2 puffs inhaled four times daily p.r.n. #1 no refills. Greater than 30 minutes was spent on coordinating care and arranging this discharge. /[id number]/MODL
== END 2017-02-11 10:00 | disposition home or self-care (01) ==
LOC: CED 09:07 → CEDHOLD 13:11 → F2N 15:24
PROVIDERS: ADMIT Internal Medicine; ATTEND Hospitalist
DX: J10.1 Influenza due to other identified influenza virus with other respiratory manifestations (principal); R11.0 Nausea; R19.7 Diarrhea, unspecified; I95.9 Hypotension, unspecified; Z88.2 Allergy status to sulfonamides
CPT/HCPCS: 71020; 93005; G0378; 80048-PO; 81003-PO; 81015-PO; 82247-PO; 83605-PO; 83690-PO; 84484-PO; 85025-PO; 85610-PO; 85730-PO; 87400-PO; J1885; J1956; J2060; J2405; J2550

== ENCOUNTER → 2017-06-15 | Outpatient (CLI) | payer OTHER | LOC: FIMAGING 13:36 | PROVIDERS: ATTEND Obstetrics & Gynecology | DX: Z12.31 Encounter for screening mammogram for malignant neoplasm of breast (principal) ==

== ENCOUNTER → 2018-07-06 | Outpatient (CLI) | payer OTHER | LOC: FIMAGING 12:24 | PROVIDERS: ATTEND Obstetrics & Gynecology | DX: Z12.31 Encounter for screening mammogram for malignant neoplasm of breast (principal) ==